=== PATIENT | female | born 1940 | race Two or more races ===

== ENCOUNTER 2019-08-06 08:03 | Outpatient (CLI) | payer OTHER | END 2019-08-06 08:12 | disposition home or self-care (01) | LOC: LAB 08:03 | DX: D64.89 Other specified anemias (principal); N39.0 Urinary tract infection, site not specified; I10 Essential (primary) hypertension; E78.2 Mixed hyperlipidemia; E03.8 Other specified hypothyroidism; E11.8 Type 2 diabetes mellitus with unspecified complications ==

== ENCOUNTER → 2019-08-06 | Outpatient (CLI) | payer OTHER, BC ==
[~2019-08-06] MED LIST: GLUCOPHAGE XR500 MG PO
== END | disposition home or self-care (01) ==
LOC: RAD 10:15
DX: K21.0 Gastro-esophageal reflux disease with esophagitis (principal); K80.00 Calculus of gallbladder with acute cholecystitis without obstruction

== ENCOUNTER 2020-04-15 08:38 | Outpatient (CLI) | payer OTHER | END 2020-04-15 08:43 | disposition home or self-care (01) | LOC: LAB 08:38 | DX: D64.89 Other specified anemias (principal); E78.2 Mixed hyperlipidemia; N39.0 Urinary tract infection, site not specified; E03.8 Other specified hypothyroidism; I10 Essential (primary) hypertension; E55.9 Vitamin D deficiency, unspecified; E11.9 Type 2 diabetes mellitus without complications ==

== ENCOUNTER 2021-08-09 10:03 | Outpatient (CLI) | payer OTHER | END 2021-08-09 10:04 | disposition home or self-care (01) | LOC: LAB 10:03 | DX: E11.9 Type 2 diabetes mellitus without complications (principal); N28.89 Other specified disorders of kidney and ureter ==